=== PATIENT | female | born 1995 | race Caucasian/White ===

== ENCOUNTER → 2023-11-16 08:25 | Outpatient (REF) | payer BC, SELFPAY | LOC: HWRAD 08:25 | PROVIDERS: ATTENDING PHYSICIAN Obstetrics & Gynecology; FAMILY PHYSICIAN Student in an Organized Health Care Education/Training Program | DX: R10.2 Pelvic and perineal pain (principal); N94.6 Dysmenorrhea, unspecified | CPT/HCPCS: 76830; 76856 ==